=== PATIENT | male | born 1960 | race American Indian/Alaskan Native ===

== ENCOUNTER 2019-12-25 08:34 | Day surgery (SDC) | payer MEDICARE ==
[2019-12-25] MEDS ORDERED: SODIUM CHLORIDE 0.9% 1000 ML 1,000 ML ONE (09:34)
--- NOTE | 2019-12-25 09:47 | Anesthesia Consultation ---
Anesthesia Consult and Med Hx - Airway Anesthetic Teeth Evaluation: Good ROM Head & Neck: Adequate Mental/Hyoid Distance: Adequate Mallampati Class: Class I Intubation Access Assessment: Good - Pulmonary Exam CTA: Yes - Cardiac Exam Cardiac Exam: RRR - Pre-Operative Health Status ASA Pre-Surgery Classification: ASA3 Proposed Anesthetic Plan: MAC - Pulmonary Hx Smoking: Yes (remote history) Hx Asthma: Yes (no symptoms in several years, no meds) Hx Respiratory Symptoms: Yes (Presently breathing at his baseline.) - Cardiovascular System Hx Hypertension: Yes - Endocrine Hx Non-Insulin Dependent Diabetes: Yes - Other Systems Hx Obesity: Yes (morbid) - Additional Comments Anesthesia Medical History Comments: H/O CHF
[2019-12-25] MEDS ORDERED: LIDOCAINE MPF (2%) 20 MG/1 ML VIAL 5 ML ONE (10:00)
[2019-12-25] MEDS ORDERED: FAMOTIDINE 20 MG/2 ML INJ IV NR (10:00)
[2019-12-25] MEDS ORDERED: FAMOTIDINE 20 MG/2 ML INJ IV ONE (10:08)
[2019-12-25] MEDS ORDERED: PROPOFOL 200 MG/20 ML VIAL IV ONE ×2 (10:09)
[2019-12-25] MEDS ORDERED: KETAMINE/STERILE WATER 50 MG/ML SYRINGE ONE (10:10)
[2019-12-25] MEDS ORDERED: SODIUM CHLORIDE 0.9% 1000 ML 1,000 ML IV SCH (10:15)
[2019-12-25] MEDS ORDERED: WATER FOR IRRIG STERILE 1,000 ML BOTTLE ONE (10:40)
[2019-12-25] MEDS ORDERED: WATER FOR IRRIG STERILE 250 ML BOTTLE IR ONE (10:41)
--- NOTE | 2019-12-25 10:46 | Anesthesia Consultation ---
Anesthesia Consult and Med Hx - Pulmonary Hx Smoking: Yes Hx Asthma: Yes (no symptoms in several years, no meds) Hx Respiratory Symptoms: Yes (Presently breathing at his baseline.) Hx Sleep Apnea: Yes - Cardiovascular System Hx Hypertension: Yes Hx Heart Attack/AMI: Yes - Central Nervous System Hx Psychiatric Problems: Yes - Endocrine Hx Non-Insulin Dependent Diabetes: Yes - Other Systems Hx Obesity: Yes (morbid) - Additional Comments Anesthesia Medical History Comments: H/O CHF, dilated cardiomyopathy, nonischemic. Hyperlipidemia.
--- NOTE | 2019-12-25 11:53 | Operative Report ---
Operative Report Operative Report: Colonoscopy with Submucosal Injection, Snare polypectomy, Hemoclip applications, Hot biopsy polypectomy, Polyp ablation. Attending physician: Ole Chaparro M.D. Counter Supply Worker: Ole Chaparro M.D. Indication: Patient is a 59-year-old male who presents for surveillance colonoscopy because of personal history of colon polyps. Patient had a colonoscopy in 2018 with a poor colonoscopic preparation. This colonoscopy serves to evaluate patient so that treatment may be directed based on the findings. Consent: Informed consent was obtained after advising the patient and family regarding nature of this procedure, its indications, potential benefits as well as possible complications including but not limited to bleeding perforation and adverse reaction to medication, infection as well as other cardiopulmonary complications. An informed written and verbal consent was then obtained after due opportunity was provided for questions and answers. Monitoring: Patient was monitored continuously with pulse oximetry and electrocardiographic recordings as well as blood pressure recordings. Vital signs remained stable throughout this procedure with no untoward events. Preoperative assessment: Patient was assessed immediately prior to this procedure for capacity to tolerate monitored anesthesia care and moderate sedation as well as general anesthesia. Patient's ASA classification is 2, Mallampati class is 2, Hyomental distance is 3. Instrument: Olympus video colonoscope CF-HQ 190L Medications: Propofol given intravenously in divided doses. For details please refer to anesthesia records. Description of procedure: Patient was placed in the left lateral decubitus position after achieving sedation, a digital rectal examination was performed following which the colonoscope was introduced into the anal verge and advanced to the cecum which was identified by the cecal valve, the appendiceal orifice, as well as by the cecal strap and direct transillumination. The colonoscope was subsequently withdrawn with careful inspection of all mucosal surfaces. Patient tolerated this procedure well and was subsequently taken to the recovery room. The following findings were noted. Findings: Ayr bowel preparation scale score : 6. : Patient had adequate colonoscopic preparation with no significant residual stool in the right colon and transverse colon and left colon. The overall preparation therefore deemed adequate with a scale score of 6. The withdrawal time from the cecum was gre ater than 6 minutes. Patient had diverticulosis of moderate severity involving the descending colon and sigmoid colon. In the cecum, patient had a broad-based 1.5 cm polyp which was flat. It was elevated with submucosal injection of saline and removed completely by snare polypectomy. The base of the polyp was then ablated. 2 hemoclips were applied over the polypectomy defect. In the ascending colon, patient had a diminutive 4 mm sessile polyp which was removed by hot biopsy polypectomy. The rest of the ascending colon was normal. The transverse colon was normal. The rest of the colon was normal except for the findings of colonic diverticulosis. On a retroflexed view of the anal verge, patient had internal hemorrhoids. Impression: Cecal polyp status post submucosal injection and snare polypectomy, Hemoclip application, polyp base ablation. Ascending colon polyp status post hot biopsy polypectomy. Diverticular disease of the colon. Internal hemorrhoids. Plan: Follow pathology report. High-fiber diet. Repeat colonoscopy in 3-5 years
[2019-12-25 12:10] VITALS: BP 128/90
--- NOTE | 2019-12-25 12:24 | Post Anesthesia Evaluation ---
- Post Anesthesia Evaluation Patient Participated: Yes Airway Patent: Yes Stable Respiratory Function: Yes Temp > 96.8F: Yes Pain Manageable: Yes Adequeate Hydration: Yes Anesthesia Complications: No
--- NOTE | 2019-12-25 12:40 | Discharge Summary ---
Short Stay Discharge Plan Activity: advance as tolerated Weight Bearing Status: Weight Bear as Tolerated Follow up with: PRIMARY CARE, [Primary Care Provider] - 7 Days
[2019-12-25] MEDS ORDERED: HYDROmorphone 2 MG/1 ML INJ IM ONE (14:25)
== END 2019-12-25 08:35 | disposition home or self-care (01) ==
LOC: GIO 08:34
PROVIDERS: ATTEND Internal Medicine Gastroenterology
DX: Z09 Encounter for follow-up examination after completed treatment for conditions other than malignant neoplasm (principal); D12.0 Benign neoplasm of cecum; D12.2 Benign neoplasm of ascending colon; K57.30 Diverticulosis of large intestine without perforation or abscess without bleeding; K64.8 Other hemorrhoids; G62.9 Polyneuropathy, unspecified; I11.0 Hypertensive heart disease with heart failure; I50.9 Heart failure, unspecified; J45.909 Unspecified asthma, uncomplicated; I25.2 Old myocardial infarction; E78.00 Pure hypercholesterolemia, unspecified; F41.9 Anxiety disorder, unspecified; G47.30 Sleep apnea, unspecified; E66.9 Obesity, unspecified; M19.90 Unspecified osteoarthritis, unspecified site; E11.42 Type 2 diabetes mellitus with diabetic polyneuropathy; Z87.891 Personal history of nicotine dependence; Z86.010 Personal history of colon polyps; Z79.891 Long term (current) use of opiate analgesic; Z88.0 Allergy status to penicillin; Z68.41 Body mass index [BMI] 40.0-44.9, adult; Z96.643 Presence of artificial hip joint, bilateral; Z98.890 Other specified postprocedural states
CPT/HCPCS: 45381; 45384; 45385; 82962; 88305; J2704; J7030